=== PATIENT | female | born 1995 | race Caucasian/White ===

== ENCOUNTER 2018-04-10 10:06 | Day surgery (SDC) | payer OTHER ==
[~2018-04-10 10:06] MED LIST: Buffered Lidocaine 0.9% SYRIN* 5 ML/SYR SYRINGE INTRADERM ONE; Dexamethasone IV* 4 MG/ML 1 ML (4 MG) IV SLOW PU ONE; Famotidine IV* 10 MG/ML 2 ML (20 mg) IV ONE
[2018-04-10] MEDS ORDERED: ceFAZolin 2 GM PREMIX (*) 2 GM/50 ML BAG IVPB ONE (10:20)
[2018-04-10] MEDS ORDERED: fentaNYL* 50 MCG/ML 2 ML VIAL (100 MCG VIAL) ONE (10:26)
[2018-04-10] MEDS ORDERED: Midazolam* 1 MG/ML 2 ML VIAL (2 MG) ONE (10:27)
[2018-04-10] MEDS ORDERED: Metoclopramide IV* 5 MG/ML 2 ML VIAL ONE ×2 (10:39→10:40)
[2018-04-10] MEDS ORDERED: Propofol* 10 MG/ML 20 ML BTL IV PUSH ONE (10:46)
[2018-04-10] MEDS ORDERED: Ondansetron INJ* 2 MG/ML VIAL ONE (10:46)
[2018-04-10] MEDS ORDERED: Bupivacaine 0.25% SDV* 30 ML ONE (11:37)
[2018-04-10] MEDS ORDERED: Scopolamine 1.5 mg* PATCH TRANSDERM PRN (12:23)
[2018-04-10] MEDS ORDERED: Naloxone* 0.4 MG/ML 1 ML VIAL IV PRN (12:23)
[2018-04-10] MEDS ORDERED: fentaNYL* 50 MCG/ML 2 ML VIAL (100 MCG VIAL) IV PRN (12:23)
[2018-04-10] MEDS ORDERED: Metoclopramide IV* 5 MG/ML 2 ML VIAL IV PRN (12:23)
[2018-04-10] MEDS ORDERED: Ketorolac INJ* 30 MG/ML 1 ML VIAL ONE (13:05)
[2018-04-10 13:57] VITALS: BP 118/72
--- NOTE | 2018-04-10 16:14 | OP ---
Operative Report - Blank - Operative Report Date of Operation: 04/10/18 Note: DATE OF OPERATION: 04/10/18 - [facility] DATE OF : 1995 SURGEON: Piyush Montoya MD DIE TECHNICIAN: KATHLEEN Joel ANESTHESIOLOGIST: Dr. Lafleur. ANESTHESIA: General. PRE-OP DIAGNOSIS: 1. Right cubital tunnel syndrome. 2. Right ulnar nerve compression at the wrist. 3. Right Dequervain's disease. POST-OP DIAGNOSIS: 1. Right cubital tunnel syndrome. 2. Right ulnar nerve compression at the wrist. 3. Right Dequervain's disease. OPERATIVE PROCEDURE: 1. Right cubital tunnel in situ release 2. Right ulnar nerve decompression at the wrist. 3. Right Dequervain's release INDICATIONS: Herberth has progressive ulnar nerve symptoms that have been rapidly progressive. She also has persistent Dequervain's pain. We talked about risks and benefits including a risk of neuritis and nerve injury. She wanted to proceed. ESTIMATED BLOOD LOSS: 2 mL. COMPLICATIONS: None. FINDINGS: As expected. DESCRIPTION OF PROCEDURE: Herberth was seen in the preoperative holding area. The correct side, site and the procedure were identified. We came back to the operating room. I anesthetized the operative area with 0.25% plain Marcaine. The arm was prepped and draped in usual fashion. The arm was exsanguinated with the Esmarch and the tourniquet was inflated to 250 mmHg. I transverse incision over the first dorsal compartment tendon sheath. Full thickness flaps were bluntly raised off the tendon sheath and the radial sensory nerve was retracted. I then longitudinally incised the first dorsal compartment tendon sheath along its dorsal margin in line with the tendons. An accessory compartment was present and the septum was excised. The tendons were completely freed. The tenosynovitis was excised. The skin was closed with 4-0 monocryl and steri-strips. I then amde a longitudinal incision in the typical for location for a carpal tunnel incision. This was brought back in Herbert-type fashion across the ulnar aspect of the wrist. Dissection was carried down and the ulnar neurovascular bundle was identified. I then opened up the fascia overlying the entirety of Guyon's canal. The motor branch was released and the subfascial layer was released as well. Both the common digital nerve and proper digital nerve were seen as ulnar nerve divided distally. Everything was fully decompressed. There was a very prominent band of tissue between the hook of the hamate and the pisiform and this was excised. Once there had been absolutely no more compression on the nerve, I irrigated everything out. The skin was closed with 4-0 nylon suture. I then made a curvilinear incision centered over Osbornes ligament. Dissection was carried down through the subcutaneous tissue taking care to identify and protect the medial antebrachial cutaneous nerve throughout the case. I began the decompression just proximal to Osbornes ligament. I released the fascia overlying the nerve proximally up past the arcade of struthers. I then released Osbornes ligament and then superficial FCU fascia. I split the two head of the FCU and released the subfascial layer in its entirety preserving the motor branches. I then checked the decompression. The elbow was flexed and extended. There was no subluxation of the nerve so I did not need to transpose the nerve. Hemostasis was obtained. The subcutaneous tissue was reapproximated with 3-0 vicryl suture. The skin was closed with 4-0 monocryl and steri strips. Marcaine 0.25% was infiltrated in the operative area. The wounds were dressed with soft dressings and the patient was woken up and taken to recovery in stable condition.
== END 2018-04-10 14:12 | disposition home or self-care (01) ==
LOC: OREAST 10:06
PROVIDERS: ATTEND Orthopaedic Surgery Hand Surgery
DX: G56.21 Lesion of ulnar nerve, right upper limb (principal); M65.4 Radial styloid tenosynovitis [de Quervain]
CPT/HCPCS: 81025; J0690; J1885; J2250; J2405; J2704; J2765; J3010